=== PATIENT | female | born 1955 | race Caucasian/White ===

== ENCOUNTER 2022-05-15 09:36 | Outpatient (CLI) | payer OTHER | END 2022-05-15 09:40 | disposition home or self-care (01) | LOC: SONOGRAMA 09:36 | PROVIDERS: ATTEND Pathology Anatomic Pathology | DX: D34 Benign neoplasm of thyroid gland (principal); E04.9 Nontoxic goiter, unspecified; E04.1 Nontoxic single thyroid nodule ==